=== PATIENT | male | born 1960 | race Caucasian/White ===

== ENCOUNTER 2016-12-27 03:56 | Emergency (ER) | payer OTHER ==
--- NOTE | ~2016-12-27 | CR150 ---
[facility] A Service of [facility] RADIOLOGY TEXT RESULTS PATIENT: FADY PALMA LOCATION: [facility] : 64 UNIT #: [id number] AGE: [address]: Marshal Sheridan MD SEX: M ORDER DR: [id number] [facility] [address] [facility]. [place], [place] [address] [id number] E MR#: [id number] Acc #: [id number] NAME: FADY PALMA : 1960 SEX: M STUDY DATE/TIME: 12/27/2016 4:48 UNIT: RODRIGUEZ ROOM: STUDY DESCRIPTION: CR Hip Min 2 Views Lt Attending Physician: Marshal Sheridan M.D. Ordering Physician: Kale Garcia Primary Care Physician: Primary Care Physician No MEDICAL IMAGING REPORT This report is preliminary unless electronic signature is present EXAM left Lip INDICATIONS Left hip pain for 3 days. FINDINGS AP view of the pelvis, AP view of the left hip, and frogleg lateral view of the left hip without comparison. There is no acute fracture or dislocation. Hips are symmetric bilaterally. IMPRESSION No acute findings. Dictated by... Vj Elias M.D. THIS IS AN ELECTRONICALLY VERIFIED REPORT Vj Elias M.D. at 12/27/2016 9:07 PM Michelle TD: 12/27/2016 08:03 JOB #: [id number] MEDICAL IMAGING REPORT Page 1 of 1 COPY
--- NOTE | ~2016-12-27 | CT2 ---
[facility] A Service of [facility] RADIOLOGY TEXT RESULTS PATIENT: FADY PALMA LOCATION: [facility] : 64 UNIT #: [id number] AGE: [address]: Marshal Sheridan MD SEX: M ORDER DR: [id number] [facility] [address] [place], [place] [address] [id number] E MR#: [id number] Acc #: [id number] NAME: FADY PALMA : 1960 SEX: M STUDY DATE/TIME: 12/27/2016 11:22 UNIT: [facility] ROOM: STUDY DESCRIPTION: CT Abd and Pelv W Cont Attending Physician: Marshal Sheridan M.D. Ordering Physician: Monalisa Aguilera Pa-C Primary Care Physician: Primary Care Physician No MEDICAL IMAGING REPORT This report is preliminary unless electronic signature is present EXAM CT of the abdomen and pelvis with IV contrast media. History supplied is left hip pain since yesterday. TECHNIQUE Axial imaging of the abdomen and pelvis was performed without contrast media. The CT exam was performed with one or more of the following radiation dose reduction techniques: automatic exposure control, adjustment of mA and/or kV according to patient size, and iterative reconstruction. FINDINGS Scans of the lung bases appear unremarkable. Scans through the liver are normal. The gallbladder is contracted. Spleen is not enlarged. The adrenal glands are normal. Pancreas is normal. Incidental right renal cyst is present. The kidneys are normal. No dilated or thickened loops of bowel are identified. Appendix is normal. No pelvic masses or fluid collections are seen. Small nodes are identified along the iliac chains none of which appear pathologically enlarged. Areas of increased density are identified within both femoral heads, left greater than right. The appearance raises the question of avascular necrosis of both femoral heads. The patient does have evidence of degenerative disc disease in the lower lumbar spine particularly at 5-1. CONCLUSION 1. No acute findings in the abdomen or pelvis. 2. Question raised of avascular necrosis of both the right and left femoral heads. This could be further evaluated by MRShahbaz [facility] A Service of [facility] RADIOLOGY TEXT RESULTS PATIENT: FADY PALMA [id number] 64 UNIT #: [id number] AGE: [address]: Marshal Sheridan MD SEX: M ORDER DR: Dictated by... Jayant Alcantar M.D. THIS IS AN ELECTRONICALLY VERIFIED REPORT Jayant Alcantar M.D. at 12/27/2016 5:06 PM HALEIGH/luana TD: 12/27/2016 15:05 JOB #: [id number] MEDICAL IMAGING REPORT Page 1 of 1 COPY
--- NOTE | ~2016-12-27 | CR63 ---
[facility] A Service of [facility] RADIOLOGY TEXT RESULTS PATIENT: FADY PALMA LOCATION: [facility] : 64 UNIT #: [id number] AGE: [address]: Marshal Sheridan MD SEX: M ORDER DR: [id number] [facility] [address] [place], [place] [address] [id number] E MR#: [id number] Acc #: [id number] NAME: FADY PALMA : 1960 SEX: M STUDY DATE/TIME: 12/27/2016 4:45 UNIT: [facility] ROOM: STUDY DESCRIPTION: CR Chest 2 View Attending Physician: Marshal Sheridan M.D. Ordering Physician: Kale Garcia Primary Care Physician: Primary Care Physician No MEDICAL IMAGING REPORT This report is preliminary unless electronic signature is present EXAM Two view chest HISTORY Shortness of air. Chest pain. FINDINGS PA and lateral views of the chest without comparison. Heart and mediastinal contours within normal limits. Lungs are clear. No pleural effusion. IMPRESSION No acute cardiopulmonary findings. Dictated by... Vj Elias M.D. THIS IS AN ELECTRONICALLY VERIFIED REPORT Vj Elias M.D. at 12/29/2016 12:23 AM Zena TD: 12/27/2016 08:05 JOB #: [id number] MEDICAL IMAGING REPORT Page 1 of 1 COPY
[2016-12-27 07:00] LABS: URINE SOURCE CLEAN CATCH
[2016-12-27 07:09] LABS: URINE APPEARANCE CLEAR; URINE BILIRUBIN NEG (NEG); URINE BLOOD 2+ (NEG); URINE COLOR YELLOW; URINE GLUCOSE NEG (NEG); URINE KETONE NEG (NEG); URINE LEUKOCYTE ESTERASE NEG (NEG); URINE NITRATE NEG (NEG); URINE PROTEIN NEG (NEG); URINE SPECIFIC GRAVITY 1.003 (1.003-1.035); URINE UROBILINOGEN 0.2 MG/DL (NEG)
[2016-12-27 07:13] LABS: BASOPHIL# 0.1 X10e3 (0-0.3); BASOPHIL% 1.4 % (0-2.5); EOSINOPHIL# 0.2 X10e3 (0-0.7); HEMATOCRIT 39.7 % (38.0-50.0); LYMPHOCYTE# 1.9 X10e3 (1.0-3.5); LYMPHOCYTE% 27.6 % (17.0-45.0); MEAN CELL VOLUME 84.9 FL (83-96); MEAN CORPUSCULAR HEMOGLOBIN 27.9 PG (28-34); MEAN CORPUSCULAR HGB CONC 32.8 g/dL (30-36); MEAN PLATELET VOLUME 8.1 FL (6.5-11.5); MONOCYTE# 0.8 X10e3 (0-1.0); MONOCYTE% 11.7 % (3.0-12.0); NEUTROPHIL# 3.8 X10e3 (1.5-7.1); NEUTROPHIL% 56.3 % (40-75); PLATELET COUNT 253 X10e3 (140-420); RED BLOOD COUNT 4.67 X10e (3.90-5.60); WHITE BLOOD COUNT 6.8 X10e3 (4.0-10.5)
[2016-12-27 07:15] LABS: DIFF IND NO
[2016-12-27 07:18] LABS: CULTURE INDICATED? NO; URINE SQUAMOUS EPITHELIAL CELL FEW /[HPF]
[2016-12-27 07:44] LABS: ALBUMIN SERUM 3.6 g/dL (3.5-5.0); BILIRUBIN,TOTAL 0.4 mg/dL (0.2-2.0); BUN/CREATININE RATIO 6.66; CALCIUM SERUM 9.1 mg/dL (8.4-10.2); CREATININE SERUM 1.2 mg/dL (0.6-1.4); GLOM FILT RATE Estimated 68.2 mL/min (>60); POTASSIUM 3.7 mmol/L (3.5-5.1); PROTEIN TOTAL SERUM 6.9 g/dL (6.0-8.3)
[2016-12-27] MEDS ORDERED: LISINOPRIL10 MG PO (12:47)
[2016-12-27] MEDS ORDERED: PATIENT'S PHARMACY (12:47)
[2016-12-27] MEDS ORDERED: ALBUTEROL17 GM PO (13:02)
[2016-12-27] MEDS ORDERED: ALBUTEROL2.5 MG/3 M NEB (13:02)
[2016-12-27] MEDS ORDERED: HYDROCODON-ACE1 EAC5 PO (13:04)
[2016-12-27] MEDS ORDERED: DITROPAN5 MG PO (13:04)
== END 2016-12-27 13:15 | disposition home or self-care (01) ==
LOC: CED 03:56
PROVIDERS: Nurse Practitioner
DX: M25.552 Pain in left hip (principal); R50.9 Fever, unspecified; J44.9 Chronic obstructive pulmonary disease, unspecified; F17.210 Nicotine dependence, cigarettes, uncomplicated
CPT/HCPCS: 71020; 73502; 74177; 80053; 81003; 83605; 85025; 85652; 86140; 87040; 99284; Q9967

== ENCOUNTER 2017-03-16 20:00 | Inpatient (IN) | payer OTHER ==
[~2017-03-16] VITALS: Ht 190.5 cm; Wt 142.4 kg
--- NOTE | ~2017-03-16 | CO ---
Unit #: [id number] #: [id number] Patient: FADY PALMA [id number] [facility] [address] [place] [address] [id number] I MR#: [id number] NAME: FADY PALMA ROOM: P265 Age: 56 Sex: M Admission Date: 03/16/2017 : 1960 Attending Physician: Jani Lopez M.D. Primary Care Physician: Primary Care Physician No Consultation Date: 03/17/2017 CONSULTATION REPORT DAVID Harris is a 56-year-old gentleman with a long history of opioid abuse. He has been involved in a Pain Clinic, but has been supplementing his pain medication off the street. He was discharged from his Pain Clinic. He complains of generalized pain especially in his back hips and legs. He also has a history of avascular necrosis bilateral hips. He is essentially confined to a wheelchair, being able to transfer and stand for brief moments. He was seen for his admission H and P on 03/17/2017. He has Tylenol and diclofenac available to him. These will be continued. Dictated by... Yadira Espinal P.A.-C. for Dwayne Patioñ/torres TD: 03/23/2017 14:23 JOB #: [id number] CONSULTATION REPORT Page 1 of 1 X Yadira Espinal CONSULTATION REPORT
--- NOTE | ~2017-03-16 | HP ---
Unit #: [id number] #: [id number] Patient: STEVEN PALMA [id number] [place] [address] [id number] I MR#: [id number] NAME: STEVEN PALMA ROOM: P178 Age: 56 Sex: M Admission Date: 03/16/2017 : 1960 Attending Physician: Jani Lopez M.D. Admitting Physician: Jani Lopez M.D. Primary Care Physician: Primary Care Physician No HISTORY AND PHYSICAL HISTORY OF PRESENT ILLNESS Steven is a 56 year old admitted to [facility] because of his abuse of opioids. By history report he has been in pain clinic but has been supplementing his medication off the street. He was discharged from the pain clinic. PAST MEDICAL HISTORY 1. Long history of opioid abuse to include pain pills and cocaine. 2. Morbid obesity. 3. History of withdrawal seizures, Xanax. 4. COPD. 5. High blood pressure. 6. History of avascular necrosis bilateral hips. 7. History of CDA. PAST SURGICAL HISTORY Nothing reported. ALLERGIES No known drug allergies. SOCIAL HISTORY Smokes one pack per day. Denies alcohol. Admits to using at least 100 mg of either Percocet or Vicodin on a daily basis. He further reports frequent use of Xanax up to 12 to 16 mg a day. FAMILY HISTORY Medically noncontributory. REVIEW OF SYSTEMS CONSTITUTIONAL: No fever or chills. HEENT: Denies any sore throat, ear pain or runny nose. CARDIOVASCULAR: Denies chest pain, irregular heart rhythm or palpitations. CHEST: Denies shortness of breath or cough. No hemoptysis. GASTROINTESTINAL: Denies nausea, vomiting, diarrhea or chronic constipation. ENDOCRINE: Denies history of increased thirst or urination. No recent significant weight loss or gain. GENITOURINARY: Denies dysuria, frequency, or hematuria. SKIN: Denies any rashes. HEMATOLOGIC: Denies history of increased bleeding or bruising. MUSCULOSKELETAL: He does report chronic back and leg pain. Unit #: [id number] #: [id number] Patient: STEVEN PALMA NEUROLOGIC: Denies problems with vision or speech. No frequent, severe headaches. No numbness, tingling or weakness in any extremities. Denies loss of bladder or bowel control. CURRENT MEDICATIONS 1. Effexor XR 75 mg q.h.s. 2. Lipitor 10 mg q.h.s. 3. Sulindac 200 mg b.i.d. 4. Zestril 10 mg q day 5. Symbicort b.i.d. 6. Ditropan 5 mg t.i.d. 7. Protonix 40 mg q day 8. Zyprexa 20 mg q day 9. Plavix 75 mg q day 10. Enteric coated aspirin 81 mg q day 11. Multivitamin 1 q day 12. Nicotine patch 21 mg q day 13. Proventil inhaler p.r.n. 14. Detox protocol PHYSICAL EXAMINATION GENERAL: Alert, morbidly obese gentleman sitting in a wheelchair, in no apparent distress. VITAL SIGNS: Blood pressure 138/86, heart rate 100, respirations 16, temperature 98.6. WEIGHT: 314. HEIGHT: 6 foot 3 inches. SKIN: Warm and dry without rash or lesion. HEENT: Normocephalic. TMs not viewed. Oral and nasal passages clear. Conjunctivae clear. Pupils equal, round and reactive to light and accommodation. Extraocular movements intact. NECK: Supple without lymphadenopathy or thyromegaly. HEART: Regular rate and rhythm without murmur. LUNGS: Clear. ABDOMEN: Soft, nontender. : Not done. EXTREMITIES: No evidence of cyanosis or clubbing. He has traced to 1 plus edema correction up his leg bilaterally. NEUROLOGICAL: Unable to complete extended exam. He moves all extremities but there is weakness in the left lower extremity. IMPRESSION Psychiatric admission. RECOMMENDATIONS PSYCHIATRIC: Per psychiatrist. MEDICAL: 1. I see no contraindications to participating in facility's activities. 2. Detox per protocol. 3. Continue Lipitor, Sulindac, Zestril, Symbicort, Ditropan, Plavix and enteric coated aspirin and Proventil inhaler. MEDICAL PROGNOSIS Good. MEDICAL CONDITION Stable. Unit #: [id number] #: [id number] Patient: STEVEN PALMA Dictated by... Yadira Espinal P.A.-C. for Dwayne Patiño/maik TD: 03/17/2017 21:42 JOB #: [id number] HISTORY AND PHYSICAL Page 1 of 1 X Yadira Espinal HISTORY AND PHYSICAL
--- NOTE | ~2017-03-16 | DS ---
Unit #: [id number] #: [id number] Patient: FADY PALMA [id number] [facility] [place] [address] [id number] I MR#: [id number] NAME: FADY PALMA ROOM: [facility] Age: 56 Sex: M Admission Date: 03/16/2017 : 1960 Discharge Date: 03/21/2017 Attending Physician: Jani Lopez M.D. Primary Care Physician: Primary Care Physician No DISCHARGE SUMMARY IDENTIFICATION DATA Mr. Palma is a 56-year-old white male who is a resident of [place], [place], and was self-referred to the hospital on a voluntary basis. DISCHARGE DIAGNOSES PSYCHIATRIC: Opioid dependence, moderate, in acute withdrawals. Bipolar disorder, most recent episode, depressed, recurrent, moderate, without psychotic features. MEDICAL: Chronic (1) ___ stressors. Mild psychosocial stressors. HISTORY OF PRESENT ILLNESS Same as in initial psychiatric evaluation. PAST PSYCHIATRIC HISTORY Same as in initial psychiatric evaluation. PAST MEDICAL HISTORY Same as in initial psychiatric evaluation. HOSPITAL COURSE The patient was admitted to the adult chemical dependency unit at [facility] chelle Garcia and was oriented to the hospital environment. Routine p.r.n. medications were initiated, and he was started back on his home medications. Medications were adjusted, and she was closely monitored. However, he was constantly complaining of being in pain and was not really sure if she wants to stay away from opiates, and he was constantly warning and demanding and asking and looking for opiates. However, once the detox was completed, it was decided that he will be discharged home. We will continue treatment on outpatient basis. DISCHARGE MEDICATIONS 1. Effexor XR 75 mg at bedtime and 150 mg in the morning for depression. 2. Zyprexa 20 mg a day for depression. CONDITION AT DISCHARGE Stable. PROGNOSIS Fair. Unit #: [id number] #: [id number] Patient: FADY PALMA Dictated by... Dwayne Damon/kay TD: 03/22/2017 08:50 JOB #: [id number] DISCHARGE SUMMARY Page 1 of 1 X Jani Lopez MD DISCHARGE SUMMARY
--- NOTE | ~2017-03-16 | CO ---
Unit #: [id number] #: [id number] Patient: STEVEN PALMA [id number] [facility] [address] [place] [address] [id number] I MR#: [id number] NAME: STEVEN PALMA ROOM: [facility] Age: 56 Sex: M Admission Date: 03/16/2017 : 1960 Attending Physician: Jani Lopez M.D. Consultation Date: 03/18/2017 CONSULTATION REPORT HISTORY OF PRESENT ILLNESS Steven reports that for the past 5 days, he has had cough and congestion without fever and without sputum production. About two weeks ago, he was started on a white pill that he took twice a day. He is unsure what this was and he is unsure if he completed the course or why he was given this. He has a history of heart problems, but he is not sure exactly what they were and he has not seen the heart doctor for these in quite a while. He also was supposed to be taking Symbicort and albuterol inhalers at home, but he has not been receiving those either. He does have some concern that his feet and his hands are swelling and does have shortness of breath with exertion. He is currently in a wheelchair. He has no other complaints. PHYSICAL EXAMINATION CARDIAC: Regular rate and rhythm. No murmurs, gallops, or rubs. RESPIRATORY: Wheezing and crackles bilaterally. ASSESSMENT AND PLAN Cough and edema. We will obtain a chest x-ray and BNP and begin Levaquin. We will also add Symbicort and albuterol inhalers scheduled. Once chest x-ray and BMP results are available, may also add Lasix or consider a referral to [facility]. [facility]. Dictated by..Jo-Ann Amaya/torres TD: 03/19/2017 04:14 JOB #: [id number] CONSULTATION REPORT Page 1 of 1 X ALDAIR BOLTON APRN X CONSULTATION REPORT
--- NOTE | ~2017-03-16 | PN ---
Unit #: [id number] #: [id number] Patient: FADY PALMA [id number] [facility] [address] [place] [address] [id number] I MR#: [id number] NAME: FADY PALMA ROOM: [facility] Age: 56 Sex: M Admission Date: 03/16/2017 : 1960 Attending Physician: Jani oLpez M.D. Admitting Physician: Jani Lopez M.D. Primary Care Physician: Primary Care Physician Leann SUH NOTES DATE March 19, 2017 DISCUSSION Mr. Palma is a 56-year-old white male, who was seen today and chart was reviewed and the case was discussed with the staff. He has been anxious, withdrawn, and rather seclusive to himself, and has been showing persistent depressive symptoms. Meanwhile, he has been taking the medications and tolerating them fairly well with no reported side effects. MENTAL STATUS EXAMINATION Middle-aged white male, who was casually dressed with fair personal hygiene and appears to be in slight distress and discomfort. He was awake and alert with impaired attention and concentration. His mood is anxious with a congruent affect. His speech is slow and goal-directed. He denies any suicidal or homicidal ideations. His insight and judgment remain slightly impaired. TREATMENT PLAN 1. We will continue him on his current medications and treatment protocol, and will monitor his response to the medications, and make further adjustments as needed. 2. We will continue to followup. Dictated by... Dwayne Damon/omero TD: 03/20/2017 06:01 JOB #: [id number] Unit #: [id number] #: [id number] Patient: FADY PALMA PROGRESS NOTES Page 1 of 1 X Jani Lopez MD PROGRESS NOTE
--- NOTE | ~2017-03-16 | PN ---
Unit #: [id number] #: [id number] Patient: FADY PALMA [id number] [facility] [address] [place] [address] [id number] MR#: [id number] NAME: FADY PALMA ROOM: [facility] Age: 56 Sex: M Admission Date: 03/16/2017 : 1960 Attending Physician: Jani Lopez M.D. Admitting Physician: Jani Lopez M.D. Primary Care Physician: Primary Care Physician Leann SUH NOTES DATE OF SERVICE: 03/20/2017 SUBJECTIVE Mr. Palma is a 56-year-old white male, who was seen today and chart was reviewed and the case was discussed with the staff. He has been anxious, withdrawn, and rather seclusive to himself. Meanwhile, he has been cooperative with the treatment recommendations and has been taking the medications and tolerating them fairly well with no reported side effects. MENTAL STATUS EXAMINATION Middle-aged white male, who was casually dressed with fair personal hygiene, appears to be in some distress and discomfort. He was awake and alert with impaired attention and concentration. His mood was anxious with a congruent affect. His speech was slow and restricted in content. He denies any suicidal or homicidal ideations. His insight and judgment remain slightly impaired. TREATMENT PLAN 1. We will continue him on his current medications and treatment protocol. We will monitor his response to the medications and make further adjustments as needed. 2. We will continue to follow up. Dictated by... Dwayne Damon/torres TD: 03/20/2017 12:04 JOB #: [id number] SHEREEN SUH NOTES Page 1 of 1 X Jani Lopez MD X PROGRESS NOTE
--- NOTE | ~2017-03-16 | CR63 ---
[facility] A Service of [facility] RADIOLOGY TEXT RESULTS PATIENT: FADY PALMA LOCATION: P2L P265-1 : [birth year] UNIT #: [id number] AGE: [address]: Jani Lopez MD SEX: M ORDER DR: [id number] [place] [id number] [facility]. [place], [place] [address] [id number] MR#: [id number] Acc #: [id number] NAME: FADY PALMA : 1960 SEX: M STUDY DATE/TIME: 03/18/2017 16:23 UNIT: P2 ROOM: [facility] STUDY DESCRIPTION: CR Chest 2 View Attending Physician: Jani Lopez M.D. Ordering Physician: Radha Kaur M.D. Primary Care Physician: No Primary Care Physician MEDICAL IMAGING REPORT This report is preliminary unless electronic signature is present EXAM Two-view chest. INDICATION Cough. Edema. TECHNIQUE PA and lateral views of the chest compared to 12/27/2016. FINDINGS The heart and mediastinal contours are within normal limits. There are some chronic interstitial opacities which are similar to the prior study. No pneumothorax. IMPRESSION No interval change. Dictated by... Vj Elias M.D. THIS IS AN ELECTRONICALLY VERIFIED REPORT Vj Elias M.D. at 03/19/2017 5:44 PM EDY/oscar TD: 03/19/2017 17:23 JOB #: [id number] MEDICAL IMAGING REPORT Page 1 of 1 COPY
--- NOTE | ~2017-03-16 | PA ---
Unit #: [id number] #: [id number] Patient: FADY PALMA [id number] [facility] [address] [place] [address] [id number] I MR#: [id number] NAME: FADY PALMA ROOM: P178 Age: 56 Sex: M Admission Date: 03/16/2017 : 1960 Date of Assessment: 03/17/2017 Attending Physician: Jani Lopez M.D. Admitting Physician: Jani Lopez M.D. Primary Care Physician: Primary Care Physician No PSYCHIATRIC ASSESSMENT DATE OF SERVICE 03/17/2017. IDENTIFYING DATA Mr. Palma is a 56-year-old, , white male, who is a resident of [place], [place], and was self-referred to the hospital on a voluntary basis accompanied by his roommate. CHIEF COMPLAINT "I went to the hospital today and I was cut off everything." HISTORY OF PRESENT ILLNESS Mr. Palma is a 56-year-old white male with a history of prescription addiction, who apparently has been prescribed medications; however, he stated that he went to the hospital today "I was cut off everything, I cannot move, I cannot walk as I'm having pain." The patient's roommate who accompanied the patient reported "he has been diagnosed as bipolar and he does not sleep. Right now, his hips are really bad and he uses gsuk-eeg-ynkdvae pills to manage the pain. He was in pain management program until he got kicked out on Monday. He did start overdosing on cocaine the other day. He is depressed." The patient apparently was active in the pain management clinic and was using cocaine and was cut off with the pain management clinic and now he wants to get detox from opioids and upon presentation had a COWS of 17 indicating significant withdrawal symptoms. He does report history of bipolar disorder and does endorse increasing depression, anxiety, irritability, restlessness, feelings of hopelessness and helplessness, but denies any suicidal ideations, intent, or plan. SUBSTANCE ABUSE HISTORY The patient reports extensive history of substance abuse and dependence including alcohol, cocaine, acid, opioids, and amphetamines, and benzodiazepines over the year; however, more recently he reports he has been using 6 to 8 bars of Xanax a day with last use being 3 or 4 days ago and has been using 15 OxyContin a day. PAST PSYCHIATRIC HISTORY The patient reports a history of chemical dependency and psychiatric treatment at [facility] in the past, and review of the medical records indicate that currently he is not active in any treatment program, and has not been seeing a psychiatrist. PAST MEDICAL HISTORY Unit #: [id number] #: [id number] Patient: FADY PALMA The patient's medical history is significant for COPD and chronic back pain. BODY AFTER ALLERGIES PERSONAL AND SOCIAL HISTORY A 56-year-old white male, who reports that he is single, unemployed, and lives with a roommate and has poor social support system. MENTAL STATUS EXAMINATION Middle-aged white male, who was casually dressed with fair personal hygiene, appears to be in no acute distress or discomfort. He was awake and alert on interaction with intact orientation to time, place, and person. His mood was anxious and depressed with a congruent affect. His speech was slow and goal directed. He denies any suicidal or homicidal ideations and also denies any auditory or visual hallucinations. His insight and judgment remain significantly impaired. DIAGNOSTIC IMPRESSION Psychiatric: Opioid dependence, moderate and acute withdrawals; bipolar disorder, most recent episode depressed, recurrent, moderate, without psychotic features. Medical: Chronic back pain. Stressors: Moderate psychosocial stressors. TREATMENT PLAN 1. The patient has presented with a history of mood disorder and substance abuse and has been decompensating and will need inpatient hospitalization for safety and stabilization. We will start him back on his home medications. We will adjust the medications and monitor response. 2. Supportive therapy was provided to the patient. 3. Safe, structured, and nourishing environment will be provided. ESTIMATED LENGTH OF STAY 5 to 7 days. ABILITY TO HELP SELF Limited. WILLINGNESS TO HELP SELF The patient appears to be willing to help self. STRENGTHS 1. Communicative. 2. Cooperative. PROBLEMS 1. Chronic dysphoric symptoms. 2. Poor social support system. DISCHARGE CRITERIA This will be contingent upon the patient's ability to show resolution of his depression and anxiety and his ability to stay safe to himself, particularly after discharge from the hospital. Unit #: [id number] #: [id number] Patient: FADY PALMA Dictated by... Dwayne Damon/torres TD: 03/17/2017 08:12 JOB #: [id number] PSYCHIATRIC ASSESSMENT Page 1 of 1 X Jani Lopez MD PSYCHIATRIC ASSESSMENT
--- NOTE | ~2017-03-16 | PN ---
Unit #: [id number] #: [id number] Patient: FADY PALMA [id number] [facility] [address] [place] [address] [id number] MR#: [id number] NAME: FADY PALMA ROOM: [facility] Age: 56 Sex: M Admission Date: 03/16/2017 : 1960 Attending Physician: Jani Lopez M.D. Admitting Physician: Jani Lopez M.D. Primary Care Physician: Primary Care Physician Leann SUH NOTES DATE 03/18/2017 DISCUSSION Mr. Palma is a 56-year-old white male with substance abuse and mood disorder who was seen today and chart was reviewed and case was discussed with the staff. He seemed to be anxious, withdrawn, depressed and rather seclusive to himself. He was sitting in the ryland-chair and reports pain in his hip and he is going through opiate detox along with some persistent depression and anxiety and has been having difficulties maintaining activities of daily living. However, no agitation or aggression has been noted. MENTAL STATUS EXAMINATION Middle-aged white male who was casually dressed with marginal personal hygiene and appears to be in some distress and discomfort. He was awake and alert with impaired attention and concentration. His mood was anxious with congruent affect. His speech is slow and restricted in content. His thought processes were disorganized with some looseness of associations. He denies any current suicidal or homicidal ideation. His insight and judgement remains significantly impaired. TREATMENT PLAN 1. Will continue on his current medications and treatment protocol. Will monitor his response to the medications and make further adjustments as needed. 2. Will continue to follow up. Dictated by... Dwayne Damon/[facility] TD: 03/18/2017 17:58 JOB #: [id number] Unit #: [id number] #: [id number] Patient: FADY PALMA SHREYALILLIAN PROGRESS NOTES Page 1 of 1 X Jani Lopez MD PROGRESS NOTE
[~2017-03-16 20:00] MED LIST: ALBUTEROL17 GM PO; ALBUTEROL2.5 MG/3 M NEB; DITROPAN5 MG PO; HYDROCODON-ACE1 EAC5 PO; LISINOPRIL10 MG PO; PATIENT'S PHARMACY
[2017-03-20 12:48] LABS: URINE APPEARANCE CLEAR; URINE BILIRUBIN NEG (NEG); URINE BLOOD TRACE (NEG); URINE COLOR YELLOW; URINE GLUCOSE NEG (NEG); URINE KETONE NEG (NEG); URINE LEUKOCYTE ESTERASE NEG (NEG); URINE NITRATE NEG (NEG); URINE PROTEIN NEG (NEG); URINE SPECIFIC GRAVITY 1.009 (1.003-1.035); URINE UROBILINOGEN 0.2 MG/DL (NEG)
[2017-03-20 12:50] LABS: URINE BACTERIA AUWI NEG (NEGATIVE); URINE SQUAMOUS EPITHELIAL CELL NONE SEEN /[HPF]; UWBCS1 AUWI 0-2 (0-5)
[2017-03-20 12:59] LABS: AMPHETAMINE NEG (NEG); BARBITURATES NEG (NEG); BENZODIAZEPINES NEG (NEG); COCAINE NEG (NEG); MARIJUANA NEG (NEG); OPIATES POS (NEG); TRICYCLIC ANTIDEPRESSANTS NEG (NEG); U METHADONE NEG (NEG)
== END 2017-03-21 14:15 | disposition home or self-care (01) | DRG 897 ==
LOC: P2L 23:38 → P1E 23:38 → P2L 03-18 14:31
PROVIDERS: Psychiatry & Neurology Psychiatry
PROC: HZ2ZZZZ Detoxification Services for Substance Abuse Treatment (ICD-10-PCS; principal; 2017-03-17)
DX: F11.23 Opioid dependence with withdrawal (principal); E66.01 Morbid (severe) obesity due to excess calories; I10 Essential (primary) hypertension; F31.32 Bipolar disorder, current episode depressed, moderate; M54.9 Dorsalgia, unspecified; G89.29 Other chronic pain; J44.9 Chronic obstructive pulmonary disease, unspecified; F17.210 Nicotine dependence, cigarettes, uncomplicated; R05 Cough; R60.9 Edema, unspecified
CPT/HCPCS: 71020; 80307; 81003; 83880

== ENCOUNTER 2017-04-04 11:32 | Emergency (ER) | payer OTHER ==
[~2017-04-04] VITALS: Ht 190.5 cm; Wt 142.4 kg
--- NOTE | ~2017-04-04 | CT16 ---
[facility] A Service of [facility] RADIOLOGY TEXT RESULTS PATIENT: FADY PALMA LOCATION: [facility] : [birth year] UNIT #: [id number] AGE: [address]: Haley Morris MD SEX: M ORDER DR: [id number] [facility] [address] [place], [place] [address] [id number] MR#: [id number] Acc #: [id number] NAME: FADY PALMA : 1960 SEX: M STUDY DATE/TIME: 04/04/2017 15:09 UNIT: [facility] ROOM: STUDY DESCRIPTION: CT Angio Chest for PE Attending Physician: Haley Morris M.D. Ordering Physician: Haley Morris M.D. Primary Care Physician: Primary Care Physician No MEDICAL IMAGING REPORT This report is preliminary unless electronic signature is present EXAM CT chest with pulmonary embolus protocol INDICATIONS Shortness of air starting today. COMPARISON No comparison. TECHNIQUE The patient was given 80 mL of Isovue 370 and spiral imaging was performed through the chest. 3-D reconstructions of the pulmonary arteries were generated. This CT exam was performed with one or more of the following radiation dose reduction techniques: automatic exposure control, adjustment of mA and/or kV according to patient size, and iterative reconstruction. FINDINGS The aorta is normal in size. There is no dissection. The pulmonary arteries are adequately opacified, but there is motion affecting the study and small distal emboli cannot be excluded. There are no central emboli. The visualized portions of the upper abdomen are normal. The bones are unremarkable. The visualized thyroid gland is normal. There is a single anterior mediastinal nodular node that is almost 2 cm in diameter and it is going to need followup. Otherwise, there is no mediastinal or hilar adenopathy. IMPRESSION 1. There is a solitary 2 cm round nodular node in the anterior mediastinal fat. A thymic tumor or pathologic lymph node cannot be excluded. There are no old studies available at this institution. If there are any old studies, they should be obtained for comparison, if not, consider short-term followup with repeat CT [facility] A Service of [facility] RADIOLOGY TEXT RESULTS PATIENT: FADY PALMA [id number] [birth year] UNIT #: [id number] AGE: [address]: Haley Morris MD SEX: M ORDER DR: scan in 3 months or if desired, a PET CT scan could be performed to evaluate the activity of this nodule. 2. No CT evidence for pulmonary embolus. The study is degraded by motion, so small distal emboli would be difficult to exclude. 3. The aorta is normal size and appearance. Dictated by... Yuniel Mkcinney M.D. THIS IS AN ELECTRONICALLY VERIFIED REPORT Yuniel Mckinney M.D. at 04/04/2017 10:09 PM FEL/to TD: 04/04/2017 19:20 JOB #: [id number] MEDICAL IMAGING REPORT Page 1 of 1 COPY
--- NOTE | ~2017-04-04 | CR72 ---
[facility] A Service of [facility] RADIOLOGY TEXT RESULTS PATIENT: FADY PALMA LOCATION: [facility] : 64 UNIT #: [id number] AGE: [address]: Haley Morris MD SEX: M ORDER DR: [id number] [facility] [address] [place], [place] [address] [id number] MR#: [id number] Acc #: [id number] NAME: FADY PALMA : 1960 SEX: M STUDY DATE/TIME: 04/04/2017 12:44 UNIT: [facility] ROOM: STUDY DESCRIPTION: CR Chest Single View Portable Attending Physician: Haley Morris M.D. Ordering Physician: Haley Morris M.D. Primary Care Physician: Primary Care Physician No MEDICAL IMAGING REPORT This report is preliminary unless electronic signature is present EXAM Chest x-ray 04/04/2017 HISTORY 56-year-old male in the ED complaining of 1-day history of shortness of air. TECHNIQUE AP portable upright chest x-ray. FINDINGS The examination shows chronically low lung volumes largely related to patient body habitus. Probable mild bibasilar atelectasis, greater on the left. Lungs otherwise clear. No visible airspace consolidation or pleural effusion. Heart size and pulmonary vascularity are normal. No significant change since 03/18/2017. IMPRESSION No active disease. No change since 03/18/2017. Dictated by... Jimmy Cruz M.D. THIS IS AN ELECTRONICALLY VERIFIED REPORT Jimmy Cruz M.D. at 04/04/2017 5:46 PM DEVINW/israel TD: 04/04/2017 16:42 JOB #: [id number] MEDICAL IMAGING REPORT Page 1 of 1 COPY
--- NOTE | ~2017-04-04 | EKG ---
PATIENT: FADY PALMA UNIT #: [id number] Ventricular Rate: 101 BPM Atrial Rate: 101 BPM P-R Interval: 152 ms QRS Duration: 78 ms Q-T Interval: 346 ms QTC Calculation(Bezet): 448 ms P Chinle: 27 degrees Calculated R Chinle: 30 degrees Calculated T Chinle: 52 degrees Diagnosis Line: Sinus tachycardia Diagnosis Line: Otherwise normal ECG Diagnosis Line: No previous ECGs available Diagnosis Line: Confirmed by NICOLASA MCKINNEY MD ([id number]) on 04/05/2017 Diagnosis Line: 7:14:40 PM INTERPRETING MD: HANK CANO
[2017-04-04 11:55] LABS: ARTERIAL BLD GAS O2 SATURATION 96.8 % (90.0-100.0); ARTERIAL BLOOD GAS ALLEN TEST NORMAL; ARTERIAL BLOOD GAS ART SITE RIGHT RADIAL; ARTERIAL BLOOD GAS CARBOXY HB 1.6 %sat (0.0-9.0); ARTERIAL BLOOD GAS HCO3 19.8 mmol/L; ARTERIAL BLOOD GAS MET HB 0.7 %sat (0.0-2.0); ARTERIAL BLOOD GAS PCO2 20.7 mmHg (35.0-45.0); ARTERIAL BLOOD GAS pH 7.588 (7.350-7.450); ARTERIAL DRAW? YES
[2017-04-04 11:56] LABS: ARTERIAL BLOOD GAS DELIVERY NASAL CANNULA
[2017-04-04 12:15] LABS: BASOPHIL# 0.1 X10e3 (0-0.3); BASOPHIL% 0.9 % (0-2.5); EOSINOPHIL# 0.1 X10e3 (0-0.7); EOSINOPHIL% 1.3 % (0.0-7.0); HEMATOCRIT 35.8 % (38.0-50.0); HEMOGLOBIN 12.1 gm/dL (13.0-16.0); LYMPHOCYTE# 3.3 X10e3 (1.0-3.5); LYMPHOCYTE% 33.1 % (17.0-45.0); MEAN CELL VOLUME 82.2 FL (83-96); MEAN CORPUSCULAR HEMOGLOBIN 27.8 PG (28-34); MEAN CORPUSCULAR HGB CONC 33.9 g/dL (30-36); MEAN PLATELET VOLUME 8.2 FL (6.5-11.5); NEUTROPHIL# 5.5 X10e3 (1.5-7.1); NEUTROPHIL% 54.7 % (40-75); PLATELET COUNT 309 X10e3 (140-420); RED BLOOD COUNT 4.35 X10e (3.90-5.60); RED CELL DISTRIBUTION WIDTH 15.3 % (11.0-15.5)
[2017-04-04 12:19] LABS: POC - CKMB 6.9 ng/mL (0.0-7.9); POC - TROPONIN <0.05 ng/mL (<=0.05)
[2017-04-04 12:21] LABS: DIFF IND NO
[2017-04-04 12:28] LABS: URINE SOURCE CLEAN CATCH
[2017-04-04 12:31] LABS: INR 1.2; PARTIAL THROMBOPLASTIN TIME 30.1 SECONDS (23.5-31.3); PROTHROMBIN TIME (PATIENT) 12.6 SECONDS (10.0-11.7)
[2017-04-04 12:36] LABS: URINE APPEARANCE CLEAR; URINE BILIRUBIN NEG (NEG); URINE BLOOD 2+ (NEG); URINE COLOR YELLOW; URINE GLUCOSE NEG (NEG); URINE KETONE NEG (NEG); URINE LEUKOCYTE ESTERASE NEG (NEG); URINE NITRATE NEG (NEG); URINE PH 5.5 (5-8); URINE PROTEIN NEG (NEG); URINE SPECIFIC GRAVITY 1.009 (1.003-1.035); URINE UROBILINOGEN 0.2 MG/DL (NEG)
[2017-04-04 12:44] LABS: BLOOD UREA NITROGEN 16 mg/dL (9-23); BUN/CREATININE RATIO 11.42; CALCIUM SERUM 9.6 mg/dL (8.4-10.2); CARBON DIOXIDE 21 mmol/L (22-31); CHLORIDE 103 mmol/L (100-111); CREATININE SERUM 1.4 mg/dL (0.6-1.4); GLOM FILT RATE Estimated 56.6 mL/min (>60); GLUCOSE FASTING 75 mg/dL (70-110); MAGNESIUM 1.6 mg/dL (1.6-3.0); POTASSIUM 3.7 mmol/L (3.5-5.1); SODIUM 137 mmol/L (135-145)
[2017-04-04 13:41] LABS: URINE BACTERIA AUWI NEG (NEGATIVE); URINE SQUAMOUS EPITHELIAL CELL NONE SEEN /[HPF]; UWBCS1 AUWI 0-2 (0-5)
[2017-04-04 13:46] LABS: CULTURE INDICATED? NO
[2017-04-04 13:48] LABS: ALCOHOL BLOOD <5 mg/dL (0)
[2017-04-04 13:51] LABS: AMPHETAMINE NEG (NEG); BARBITURATES NEG (NEG); BENZODIAZEPINES NEG (NEG); COCAINE NEG (NEG); MARIJUANA NEG (NEG); OPIATES NEG (NEG); TRICYCLIC ANTIDEPRESSANTS NEG (NEG); U METHADONE NEG (NEG)
[2017-04-04 14:04] LABS: POC - CKMB 7.1 ng/mL (0.0-7.9); POC - TROPONIN <0.05 ng/mL (<=0.05)
== END 2017-04-04 16:00 | disposition home or self-care (01) ==
LOC: CED 11:32
PROVIDERS: Student in an Organized Health Care Education/Training Program
DX: R91.1 Solitary pulmonary nodule (principal); J44.9 Chronic obstructive pulmonary disease, unspecified; Z76.5 Malingerer [conscious simulation]; I11.0 Hypertensive heart disease with heart failure; I50.9 Heart failure, unspecified
CPT/HCPCS: 36415; 36600; 71010; 71275; 80048; 80307; 81003; 82553; 82803; 83735; 83880; 84484; 85025; 85379; 85610; 85730; 93005; 96361; 96374; 99285; G0480; J2930; Q9967